=== PATIENT | female | born 1995 | race Caucasian/White ===

== ENCOUNTER 2021-11-02 14:08 | Observation (INO) ==
[2021-11-02] MEDS ORDERED: Ringers Solution, Lactated 1,000 ML ONE (14:55)
[2021-11-02] MEDS ORDERED: Ringers Solution, Lactated 1,000 ML IVC ONE (14:56)
[2021-11-02 15:20] LABS: Basophils % 0.2 %; Eosinophils # 0.1 K/mcL (0.0-0.6); Eosinophils % 0.4 %; Hematocrit 36.3 % (35.3-44.9); Lymphocytes # 1.4 K/mcL (0.6-4.6); Lymphocytes % 11.9 %; Mean Corpuscular HGB Conc 33.1 g/dL (31.6-35.5); Mean Corpuscular Hemoglobin 28.2 pg (28.0-33.3); Mean Corpuscular Volume 85.2 fL (83.0-100.0); Mean Platelet Volume 9.3 fL (9.4-12.4); Monocytes # 0.5 K/mcL (0.0-1.3); Monocytes % 4.4 %; Neutrophils # 9.6 K/mcL (1.6-8.9); Platelet Count 271 K/mcL (140-400); Red Blood Count 4.26 M/mcL (3.82-4.97); Red Cell Distribution Width 13.3 % (11.5-14.5); Segmented Neutrophils % 82.1 %; White Blood Count 11.7 K/mcL (4.3-11.1)
[2021-11-02 15:58] LABS: Bacteria,Urine Few per hpf (None-Few); Bilirubin,Urine Negative (Negative); Blood,Urine Negative (Negative); Clarity,Urine Turbid (Clear); Color,Urine Yellow (Yellow); Glucose,Urine (UA) Normal (Normal); Ketones,Urine 10 mg/dL (Negative); Leukocyte Esterase,Urine Negative (Negative); Mucus,Urine Few per lpf (None-Few); Nitrite,Urine Negative (Negative); PH,Urine 6.5 pH Units (5.0-8.0); Protein,Urine Trace mg/dL (Neg-Trace); RBC,Urine 0-3 per hpf (0-3); Specific Gravity,Urine 1.015 (1.010-1.025); Squamous Epithelial Cell,Urine Many per hpf (None-Few); Urobilinogen,Urine Normal (Normal); WBC,Urine 0-3 per hpf (0-3)
== END 2021-11-02 17:30 | disposition home or self-care (01) ==
LOC: 1NENULAB
PROVIDERS: ADMIT Obstetrics & Gynecology; ATTEND Obstetrics & Gynecology

== ENCOUNTER 2021-11-25 21:52 | Inpatient (IN) ==
[2021-11-25] MEDS ORDERED: *HR* Nalbuphine 10 MG/ML AMPUL IV PRN (22:57)
[2021-11-25] MEDS ORDERED: Metoclopramide 10 MG/2 ML VIAL IVP PRN (22:57)
[2021-11-25] MEDS ORDERED: Naloxone 0.4 MG/ML INJ IVP PRN (22:57)
[2021-11-25] MEDS ORDERED: Famotidine 20 MG/2 ML VIAL IVP PRN (22:57)
[2021-11-25] MEDS ORDERED: Azithromycin 500 MG in 0.9 % Sodium Chloride 250 ML IVPB PRN (22:57)
[2021-11-25] MEDS ORDERED: Penicillin G Potassium 5,000,000 UNIT in 0.9 % Sodium Chloride Mini Bag 100 ML IVPB ONE (23:01)
[2021-11-25] MEDS ORDERED: EPHEDrine 50 MG/ML VIAL IVP PRN (23:08)
[2021-11-26] MEDS: Ringers Solution, Lactated 1,000 ML IVC SCH ×2 (02:23→10:36)
[2021-11-26] MEDS: miSOPROStoL 25 MCG TABLET PO PRN ×2 (02:29→06:28)
[2021-11-26 02:38] LABS: Basophils % 0.2 %; Eosinophils # 0.1 K/mcL (0.0-0.6); Eosinophils % 0.6 %; Hematocrit 37.4 % (35.3-44.9); Hemoglobin 12.7 g/dL (11.5-15.4); Immature Granulocytes % 1.2 % (0-4); Lymphocytes # 1.7 K/mcL (0.6-4.6); Lymphocytes % 13.3 %; Mean Corpuscular Hemoglobin 29.1 pg (28.0-33.3); Mean Corpuscular Volume 85.8 fL (83.0-100.0); Mean Platelet Volume 9.8 fL (9.4-12.4); Monocytes # 0.6 K/mcL (0.0-1.3); Monocytes % 4.8 %; Neutrophils # 10.4 K/mcL (1.6-8.9); Platelet Count 266 K/mcL (140-400); Red Blood Count 4.36 M/mcL (3.82-4.97); Red Cell Distribution Width 13.9 % (11.5-14.5); Segmented Neutrophils % 79.9 %
[2021-11-26 02:46] LABS: Protein/Creatinine Ratio,Urine 0.14 mg/mg (0.00-0.20)
[2021-11-26] MEDS: Ondansetron 4 MG/2 ML VIAL IVP PRN ×2 (02:46→08:13)
[2021-11-26 02:47] LABS: Amphetamine Screen,Urine Negative ng/mL (Cutoff=1000); Barbiturate Screen,Urine Negative ng/mL (Cutoff=200); Benzodiazepines Screen,Urine Negative ng/mL (Cutoff=200); Cannabinoid Screen,Urine Negative ng/mL (Cutoff = 50); Cocaine Screen,Urine Negative ng/mL (Cutoff= 300); Opiate Screen,Urine Negative ng/mL (Cutoff=300); Phencyclidine Screen,Urine Negative ng/mL (Cutoff=25)
[2021-11-26 03:05] LABS: Alanine Aminotransferase 12 Units/L (7-52); Aspartate Amino Transferase 25 Units/L (13-39); BUN/Creatinine Ratio 18 (6-26); Blood Urea Nitrogen 10 mg/dL (6-20); Lactate Dehydrogenase 255 Units/L (140-271); Uric Acid 4.1 mg/dL (2.3-7.6); eGFR For African Americans > 60 (> 60); eGFR For Non-African Americans > 60 (> 60)
[2021-11-26 03:14] LABS: Influenza A PCR Negative (Negative); Influenza B PCR Negative (Negative); Resp. Syncytial Virus PCR Negative (Negative)
[2021-11-26 03:16] LABS: SARS-CoV-2 by PCR (In House) Negative (Negative)
[2021-11-26] MEDS: Penicillin G Potassium 2,500,000 UNIT/105 ML MLS IVPB SCH ×3 (06:28→16:22)
[2021-11-26] MEDS ORDERED: Oxytocin 30 UNIT/503 ML BAG IVC SCH (10:30)
[2021-11-27] MEDS: Penicillin G Potassium 2,500,000 UNIT/105 ML MLS IVPB SCH ×3 (00:12→11:49)
[2021-11-27] MEDS: Ringers Solution, Lactated 1,000 ML IVC SCH ×2 (00:13→10:02)
[2021-11-27] MEDS: Epidural Premix (fent/bupiv) 110 ML EP SCH ×2 (07:10→14:30)
[2021-11-27] MEDS ORDERED: CeFAZolin 2,000 MG/120 ML BAG IVPB ONE (15:35)
[2021-11-27] MEDS ORDERED: Lidocaine/EPI 1:200k 2% PF 20 ML VIAL ONE (15:37)
[2021-11-27] MEDS ORDERED: Sodium Bicarbonate 50 MEQ/50 ML VIAL ONE (15:37)
[2021-11-27] MEDS ORDERED: Ketorolac 30 MG/ML VIAL ONE (15:47)
[2021-11-27] MEDS ORDERED: Ondansetron 4 MG/2 ML VIAL ONE (15:47)
[2021-11-27] MEDS ORDERED: *HR* Morphine Sulfate/PF 10 MG/10 ML AMPUL ONE (15:47)
[2021-11-27] MEDS ORDERED: Acetaminophen IV 1,000 MG/100 ML BAG IVPB ONE (15:47)
[2021-11-27] MEDS ORDERED: Ringers Solution, Lactated 1,000 ML ONE (16:04)
[2021-11-27] MEDS ORDERED: *HR* HYDROmorphone PF 0.5 MG/0.5 ML SYRINGE IVP PRN (16:19)
[2021-11-27] MEDS ORDERED: *HR* Labetalol 20 MG/4 ML SYRINGE IVP PRN (16:19)
[2021-11-27] MEDS ORDERED: Promethazine 6.25 MG in Water for inj. (sterile) 20 ML IVPB PRN (16:19)
[2021-11-27] MEDS ORDERED: Chloroprocaine 3%/PF 20 ML VIAL INFILT ONE (16:27)
[2021-11-27] MEDS ORDERED: Ringers Solution, Lactated 1,000 ML IVC SCH ×2 (16:30→20:40)
[2021-11-27 18:47] LABS: Hematocrit 27.4 % (35.3-44.9)
[2021-11-27 18:49] LABS: Hemoglobin 9.1 g/dL (11.5-15.4); Lymphocytes # 0.6 K/mcL (0.6-4.6); Mean Corpuscular HGB Conc 33.2 g/dL (31.6-35.5); Mean Corpuscular Hemoglobin 29.5 pg (28.0-33.3); Mean Platelet Volume 9.5 fL (9.4-12.4); Platelet Count 279 K/mcL (140-400); Red Blood Count 3.08 M/mcL (3.82-4.97); Red Cell Distribution Width 14.3 % (11.5-14.5); White Blood Count 27.7 K/mcL (4.3-11.1)
[2021-11-27 20:04] LABS: Monocytes # 0.6 K/mcL (0.0-1.3); Neutrophils # 26.6 K/mcL (1.6-8.9)
[2021-11-27 20:06] LABS: Platelet Estimate Normal (Normal)
[2021-11-27] MEDS ORDERED: Oxytocin 30 UNIT/503 ML BAG IVC SCH (20:40)
[2021-11-27] MEDS ORDERED: Metoclopramide 10 MG/2 ML VIAL IVP PRN (20:40)
[2021-11-27] MEDS ORDERED: *HR* OxyCODONE Immed Rel 5 MG TABLET PO PRN (20:40)
[2021-11-27] MEDS ORDERED: Simethicone 80 MG TAB.CHEW PO PRN (21:00)
[2021-11-27] MEDS ORDERED: Ondansetron 4 MG/2 ML VIAL IVP PRN (21:00)
[2021-11-27] MEDS: Acetaminophen 325 MG TABLET PO SCH (21:16)
[2021-11-27] MEDS: Ibuprofen 600 MG TABLET PO SCH (21:16)
[2021-11-27] MEDS: metroNIDAZOLE 500 MG TABLET PO SCH (21:16)
[2021-11-27] MEDS: cephALEXin 500 MG CAPSULE PO SCH (21:16)
[2021-11-27 22:18] LABS: Hematocrit 25.3 % (35.3-44.9); Hemoglobin 8.4 g/dL (11.5-15.4)
[2021-11-28] MEDS: Acetaminophen 325 MG TABLET PO SCH ×3 (04:19→20:52)
[2021-11-28] MEDS: Ibuprofen 600 MG TABLET PO SCH ×3 (04:19→20:53)
[2021-11-28 05:31] LABS: Basophils % 0.1 %; Eosinophils % 0.1 %; Hematocrit 22.1 % (35.3-44.9); Hemoglobin 7.4 g/dL (11.5-15.4); Immature Granulocytes % 0.7 % (0-4); Lymphocytes # 1.6 K/mcL (0.6-4.6); Lymphocytes % 8.4 %; Mean Corpuscular HGB Conc 33.5 g/dL (31.6-35.5); Mean Corpuscular Hemoglobin 28.6 pg (28.0-33.3); Mean Corpuscular Volume 85.3 fL (83.0-100.0); Mean Platelet Volume 10.1 fL (9.4-12.4); Monocytes # 1.2 K/mcL (0.0-1.3); Monocytes % 6.4 %; Neutrophils # 16.3 K/mcL (1.6-8.9); Platelet Count 229 K/mcL (140-400); Red Blood Count 2.59 M/mcL (3.82-4.97); Red Cell Distribution Width 14.2 % (11.5-14.5); Segmented Neutrophils % 84.3 %; White Blood Count 19.3 K/mcL (4.3-11.1)
[2021-11-28] MEDS ORDERED: 0.9 % Sodium Chloride 1,000 ML ONE (07:33)
[2021-11-28] MEDS: cephALEXin 500 MG CAPSULE PO SCH ×3 (07:37→20:53)
[2021-11-28] MEDS: metroNIDAZOLE 500 MG TABLET PO SCH ×3 (07:38→20:53)
[2021-11-28] MEDS: Prenatal Vit/FA 1 EACH TABLET PO SCH (07:38)
[2021-11-28 16:06] LABS: Basophils % 0.1 %; Eosinophils # 0.1 K/mcL (0.0-0.6); Eosinophils % 0.4 %; Hematocrit 24.6 % (35.3-44.9); Hemoglobin 8.2 g/dL (11.5-15.4); Immature Granulocytes % 1.5 % (0-4); Lymphocytes # 2.3 K/mcL (0.6-4.6); Lymphocytes % 15.2 %; Mean Corpuscular HGB Conc 33.3 g/dL (31.6-35.5); Mean Corpuscular Hemoglobin 29.1 pg (28.0-33.3); Mean Corpuscular Volume 87.2 fL (83.0-100.0); Mean Platelet Volume 9.5 fL (9.4-12.4); Monocytes % 6.8 %; Neutrophils # 11.4 K/mcL (1.6-8.9); Platelet Count 243 K/mcL (140-400); Red Blood Count 2.82 M/mcL (3.82-4.97); Red Cell Distribution Width 14.4 % (11.5-14.5)
[2021-11-29] MEDS: Acetaminophen 325 MG TABLET PO SCH ×3 (03:07→15:27)
[2021-11-29] MEDS: Ibuprofen 600 MG TABLET PO SCH ×3 (03:07→15:26)
[2021-11-29 07:25] VITALS: TEMP 98.6; O2SAT 99
[2021-11-29] MEDS: cephALEXin 500 MG CAPSULE PO SCH ×2 (09:13→15:27)
[2021-11-29] MEDS: Prenatal Vit/FA 1 EACH TABLET PO SCH (09:13)
[2021-11-29] MEDS: metroNIDAZOLE 500 MG TABLET PO SCH ×2 (09:13→15:27)
[2021-11-29 09:37] LABS: Basophils % 0.3 %; Eosinophils # 0.2 K/mcL (0.0-0.6); Eosinophils % 1.1 %; Hematocrit 25.2 % (35.3-44.9); Hemoglobin 8.5 g/dL (11.5-15.4); Immature Granulocytes % 2.7 % (0-4); Lymphocytes # 2.1 K/mcL (0.6-4.6); Lymphocytes % 14.3 %; Mean Corpuscular HGB Conc 33.7 g/dL (31.6-35.5); Mean Corpuscular Hemoglobin 29.3 pg (28.0-33.3); Mean Corpuscular Volume 86.9 fL (83.0-100.0); Mean Platelet Volume 9.3 fL (9.4-12.4); Monocytes # 0.7 K/mcL (0.0-1.3); Neutrophils # 11.3 K/mcL (1.6-8.9); Platelet Count 265 K/mcL (140-400); Red Cell Distribution Width 14.3 % (11.5-14.5); Segmented Neutrophils % 76.6 %; White Blood Count 14.7 K/mcL (4.3-11.1)
[2021-11-29 09:57] VITALS: BP 102/65; PULSE 79
== END 2021-11-29 15:56 | disposition home or self-care (01) | DRG 787 ==
LOC: 1NENULAB 21:52 → 1NENUOBS 11-27 20:24
PROVIDERS: ADMIT Obstetrics & Gynecology; ATTEND Obstetrics & Gynecology